=== PATIENT | female | born 1975 | race African-American/Black ===

== ENCOUNTER 2018-07-12 08:10 | Outpatient (CLI) | payer OTHER | END 2018-07-12 22:13 | disposition home or self-care (01) | LOC: MAMMO 08:10 | DX: Z12.31 Encounter for screening mammogram for malignant neoplasm of breast (principal) ==

== ENCOUNTER 2018-07-21 10:29 | Outpatient (CLI) | payer OTHER | END 2018-07-21 19:33 | disposition home or self-care (01) | LOC: MAMMO 10:29 | DX: R92.2 Inconclusive mammogram (principal) ==

== ENCOUNTER 2019-02-15 09:54 | Outpatient (CLI) | payer OTHER | END 2019-02-15 23:45 | disposition home or self-care (01) | LOC: MAMMO 09:54 | DX: R92.2 Inconclusive mammogram (principal) ==

== ENCOUNTER 2021-04-10 09:28 | Outpatient (CLI) | payer OTHER | END 2021-04-10 20:25 | disposition home or self-care (01) | LOC: MAMMO 09:28 | PROVIDERS: ATTEND Internal Medicine | DX: Z12.31 Encounter for screening mammogram for malignant neoplasm of breast (principal) ==